=== PATIENT | male | born 1935 | race Caucasian/White ===

== ENCOUNTER 2020-10-05 09:33 | Outpatient (REF) | payer SELFPAY ==
--- NOTE | 2020-10-05 09:58 | MHC.AU.P13 ---
Hearing Instrument Maintenance Date of Visit: 10/05/20 Right Ear: Bulb Planter: Phonak Model: AUDEO M90-13T Serial Number: [id number] Repair Warranty: 11/16/2021 Loss and Damage Warranty: 11/16/2021 Battery Size: 13 Color: SILVER VALDES Precision Agriculture Technician: 1M Type of Mold: SLIM TIP [id number] Type of Wax Guard: CERUSTOP Dispensed By: [facility] Date of Fittin08/22/2018 Left Ear: Bulb Planter: Phonak Model: TykoonEO M90-13T Serial Number: [id number] Repair Warranty: 11/16/2021 Loss and Damage Warranty: 11/16/2021 Battery Size: 13 Color: SILVER VALDES Precision Agriculture Technician: 1M Type of Mold: SLIM TIP [id number] Type of Wax Guard: CERUSTOP Dispensed By: [facility] Date of Fittin08/22/2018 Follow-Up Summary: Daughter brought in aids for cleaning. Hearing aids cleaned and wax guards replaced - now amplifying clearly. Recommendations: Recommendations: Hearing instrument follow-up or maintenance as needed. Signature: Provider: TEJAL Quiroz-HIS
== END 2020-10-05 09:34 | disposition home or self-care (01) ==
LOC: HO.HAP 09:33
PROVIDERS: Visit Provider Nurse Practitioner
DX: Z13.89 Encounter for screening for other disorder (principal)

== ENCOUNTER 2020-12-14 10:27 | Outpatient (REF) | payer MEDICARE, SELFPAY ==
--- NOTE | 2020-12-14 13:29 | MHC.AU.HFU ---
Hearing Instrument Follow-Up- Binaural Date of Visit: 12/14/20 Right Ear: Copy Lathe Tender: Phonak Model: LOKESHEO M90-13T Serial Number: [id number] Repair Warranty: 11/16/2021 Loss and Damage Warranty: 11/16/2021 Battery Size: 13 Color: SILVER VALDES Direct Care Counselor: 1M Type of Mold: SLIM TIP [id number] Type of Wax Guard: CERUSTOP Dispensed By: [facility] Date of Fittin08/22/2018 Left Ear: Copy Lathe Tender: Phonak Model: LOKESHEO M90-13T Serial Number: [id number] Repair Warranty: 11/16/2021 Loss and Damage Warranty: 11/16/2021 Battery Size: 13 Color: SILVER VALDES Direct Care Counselor: 1M Type of Mold: SLIM TIP [id number] Type of Wax Guard: CERUSTOP Dispensed By: [facility] Date of Fittin08/22/2018 Follow-Up Summary: Patient forgot the right aid today. Left aid not working well, blocked with cerumen. Performed maintenance on the left aid, cleaned microphones and contacts, and changed was guard. Aid amplifying now. Reprogrammed left aid to today's hearing test and performed firmware update. Recommendations: Scheduled appointment for 12/20/2020. Patient will bring both aids in. NEED RIGHT AID CLEANED, PERFORM FIRMWARE UPDATE AND REPROGRAM THE AID WITH THE LEFT AID TO NEWEST AUDIOGRAM. Diagnosis Code(s): Primary Diagnosis: H90.3 Bilateral Sensorineural Hearing Loss Services Performed: FONSECA Non-Quantity Charges: HANC: NonBillable Event Signature: Provider: Lokesh Goyal, [facility]
--- NOTE | 2020-12-16 12:12 | MHC.AU.AHA ---
Adult Audiological Evaluation Date of Visit: 12/14/20 Food Editor Used: Not Applicable Reason for Appointment: Audiologic re-evaluation to determine possible change in hearing ability. 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 Zachery reports he does not often wear his left hearing aid because it sounds muffled and he thinks he hears intermittent noise from the aid. Previous Hearing Test Results: 04/15/2018 [facility] Right Ear - Moderate mixed hearing loss at 250 and 500 Hz, rising to mild sensorineural loss at 7505-3473 Hz, sloping to a severe high frequency sensorineural hearing loss with 84% speech understanding at 75 dB HL. Left Ear - Mild sensorineural hearing loss 250-2000 Hz, sloping to a severe high frequency sensorineural loss with 80% speech discrimination at 80 dB HL Ear History: History of Ear Wax Buildup: Yes Tinnitus/Ringing/Noises in Ears: Both ears. Medical History: Medical History: High Blood Pressure, Stroke, Glomerolosclerosis Medication List: Mycophenolate, Lisinopril, Furosemide (potentially ototoxic), Atorvastatin, Eliquis, Omeprazole, Lopermide, Vitamin C and D, Multivitamin, Potassium, Antidepressant. Hearing Instrument History- Right Ear: Master Planner: Altitude Digital Model: Leetchi M90-13T Serial Number: [id number] Battery Size: 13 Repair Warranty: 11/16/2021 Loss and Damage Warranty: 11/16/2021 Dispensed By: [facility] Date of Fittin08/22/2018 Hearing Instrument History- Left Ear: Master Planner: Altitude Digital Model: Leetchi M90-13T Serial Number: [id number] Battery Size: 13 Warranty: 11/16/2021 Loss and Damage Warranty: 11/16/2021 Dispensed By: [facility] Date of Fittin08/22/2018 Otoscopy: Right Ear: Partially occluded with cerumen Left Ear: Partially occluded with cerumen Tympanometry: Tympanometry performed due to: To assess integrity of the middle ear system Right Ear: Reduced Middle Ear Compliance (Type As) Left Ear: Normal Middle Ear System (Type A) Hearing Evaluation: Transducer(s) Used: Insert Earphones Bone Conduction Method: Conventional Audiometry Stimuli Used: Pure Tones Right Ear: Description of Hearing: Moderately-severe mixed loss at 250 and 500 Hz, rising to moderate loss at 1000 Hz, sloping to a severe high frequency sensorineural hearing loss. Left Ear: Description of Hearing: Moderate rising to mild sensorineural hearing loss 250-1000 Hz, sloping to a severe high frequency sensorineural hearing loss. Speech Recognition Threshold (SRT): Method Used: Monitored Live Voice Stimuli Used: Spondee Words Right Ear: 45 dB HL Left Ear: 35 dB HL Word Discrimination: Method: Recorded Lists Word Lists Used: NU-6 Right Ear: 64% at 85 dB HL Left Ear: 72% at 75 dB HL Comparison: Compared to most recent evaluation: Overall thresholds have decreased 5-15 dB with decreased speech discrimination ability, both ears. Recommendations: -Follow-up with physician for cerumen removal. Not able to remove cerumen in this office today due to Zachery's use of blood thinners. - Zachery brought only the left hearing aid today which was not working at all. Cleaned the left aid with new battery and aid now working well. Left aid was reprogrammed to today's test results. - Scheduled an appointment for 12/20/20 for Zachery to bring in both hearing aids. Will clean the right aid and reprogram aids together using today's test results. - Audiological re-evaluation in one year. Will send a reminder card. Diagnosis: Primary Diagnosis: H90.3 Bilateral Sensorineural Hearing Loss Services Performed: Comprehensive Audiological Evaluation (CPT 78930) Tympanometry (CPT 73295) Signature: Provider: Lokesh Goyal, [facility]
== END 2020-12-14 10:28 | disposition home or self-care (01) ==
LOC: HO.SH 10:27
PROVIDERS: Visit Provider Nurse Practitioner Primary Care
DX: H90.3 Sensorineural hearing loss, bilateral (principal)
CPT/HCPCS: 92557; 92567

== ENCOUNTER 2020-12-20 13:10 | Outpatient (REF) | payer SELFPAY | END 2020-12-20 13:11 | disposition home or self-care (01) | LOC: HO.HAP 13:10 | PROVIDERS: Visit Provider Nurse Practitioner Primary Care | DX: Z13.89 Encounter for screening for other disorder (principal) ==